=== PATIENT | female | born 1960 | race Caucasian/White ===

== ENCOUNTER 2017-02-15 16:34 | Inpatient (IN) | payer MEDICARE ==
[~2017-02-15] VITALS: Ht 154.9 cm; Wt 174.5 kg
[2017-02-16 00:33] VITALS: Ht 154.9 cm; Wt 174.5 kg
[2017-02-16] MEDS ORDERED: ACETAMINOPHEN325 MG PO (03:42)
[2017-02-16] MEDS ORDERED: MAALOX ADVANCE355 ML PO (03:44)
[2017-02-16] MEDS ORDERED: AUGMENTIN 500-11 TA1 PO (03:45)
[2017-02-16] MEDS ORDERED: CATAPRES0.1 MG PO (03:46)
[2017-02-16] MEDS ORDERED: NOVOLIN 70/30 110 ML SQ ×2 (03:48→03:49)
[2017-02-16] MEDS ORDERED: HUMULIN R100 U/ML SC (03:50)
[2017-02-16] MEDS ORDERED: MILK OF MAGNESI30 ML PO (03:51)
[2017-02-16] MEDS ORDERED: PROTONIX40 MG PO (03:52)
[2017-02-16] MEDS ORDERED: ZESTRIL40 MG PO (03:52)
[2017-02-16] MEDS ORDERED: LOPRESSOR25 MG PO (03:53)
[2017-02-16] MEDS ORDERED: ASPIRIN81 MG PO (03:54)
[2017-02-16] MEDS ORDERED: OXY IR30 MG PO (03:54)
[2017-02-16] MEDS ORDERED: COLACE100 MG PO (03:56)
[2017-02-16] MEDS ORDERED: PLAVIX75 MG PO (03:56)
[2017-02-16] MEDS ORDERED: LIPITOR20 MG PO (03:56)
[2017-02-16] MEDS ORDERED: FERROUS SULFAT325 MG PO (03:57)
[2017-02-16] MEDS ORDERED: NEURONTIN 300300 MG PO (03:58)
[2017-02-16] MEDS ORDERED: HCTZ25 MG PO (04:00)
[2017-02-25] MEDS ORDERED: PERCOCET 5-3251 TAB PO (09:23)
[2017-02-26 08:10] VITALS: BP 136/58
== END 2017-02-26 12:31 | disposition home or self-care (01) | DRG 91 ==
LOC: D.REHAB 16:34
PROVIDERS: ADMIT Emergency Medicine
DX: G72.81 Critical illness myopathy (principal); J96.01 Acute respiratory failure with hypoxia; J18.9 Pneumonia, unspecified organism; A41.9 Sepsis, unspecified organism; L03.116 Cellulitis of left lower limb; L03.115 Cellulitis of right lower limb; N39.0 Urinary tract infection, site not specified; Z68.45 Body mass index [BMI] 70 or greater, adult; G47.33 Obstructive sleep apnea (adult) (pediatric); I10 Essential (primary) hypertension; J45.909 Unspecified asthma, uncomplicated; E66.01 Morbid (severe) obesity due to excess calories